=== PATIENT | male | born 1990 | race Caucasian/White ===

== ENCOUNTER 2018-03-15 22:47 | Emergency (ER) | payer OTHER, SELFPAY ==
[2018-03-15 22:55] VITALS: BP 125/74; PULSE 78; RESP 16; TEMP 36.6; O2SAT 99; BMI 27.4
== END 2018-03-15 23:22 | disposition left against medical advice (07) ==
DX: L02.91 Cutaneous abscess, unspecified (principal)
CPT/HCPCS: 99282